=== PATIENT | male | born 1930 | race Caucasian/White ===

== ENCOUNTER 2017-04-21 17:04 | Observation (INO) | payer BC, MEDICARE, OTHER ==
--- NOTE | 2017-04-21 17:19 | EDM.PDOC ---
ED HPI GENERAL MEDICAL PROBLEM - General Chief Complaint: Lower Extremity Injury/Pain Stated Complaint: left knee pain Time Seen by Provider: 04/21/17 17:10 Source of Information: Reports: Patient, EMS History Limitations: Reports: No Limitations - History of Present Illness INITIAL COMMENTS - FREE TEXT/NARRATIVE: Pt was standing up from a stool and turned and his knee "gave out". Causing discomfort. When he tried to walk it caused severe pain. 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 Last surgery 5-6 yrs ago. Pt denies falling or hitting his head. Denies any loc, dizziness, or confusion. Onset: Today, Sudden Onset Date: 04/21/17 Onset Time: 04:00 Duration: Getting Worse Location: Reports: Upper Extremity, Left Quality: Reports: Sharp Improves with: Reports: Immobilization, Rest Worsens with: Reports: Movement Associated Symptoms: Reports: No Other Symptoms. Denies: Confusion, Malaise, Nausea/Vomiting, Seizure, Syncope, Weakness left knee Pain Score (Numeric/FACES): 5 - Related Data Allergies Allergy/AdvReac Type Severity Reaction Status Date / Time No Known Allergies Allergy Verified 04/21/17 17:30 Home Meds: Home Meds Benazepril HCl [Lotensin] 40 mg PO DAILY 04/21/17 [History] RX: Betamethasone Valerate [IJD: Valisone 0.1% Crm] 1 applic TOP DAILY 04/21/17 [History] RX: Felodipine [Felodipine ER] 10 mg pe PO DAILY 04/21/17 [History] RX: Gemfibrozil 600 mg PO DAILY 04/21/17 [History] RX: atorvaSTATin [Lipitor] 20 mg PO DAILY 04/21/17 [History] RX: glipiZIDE [Glucotrol XL] 5 mg PO DAILY 04/21/17 [History] metFORMIN HCl [Metformin HCl] 1,000 mg PO DAILY 04/21/17 [History] Review of Systems - Review of Systems Review Of Systems: See Below Constitutional: Reports: No Symptoms Respiratory: Reports: No Symptoms Cardiovascular: Reports: No Symptoms GI/Abdominal: Reports: No Symptoms Musculoskeletal: Reports: Leg Pain (left knee pain and swelling ), Joint Swelling Skin: Reports: No Symptoms Neurological: Reports: No Symptoms ED EXAM, GENERAL - Physical Exam Exam: See Below Exam Limited By: No Limitations General Appearance: Alert, WD/WN, No Apparent Distress Respiratory/Chest: No Respiratory Distress, Lungs Clear, No Accessory Muscle Use Cardiovascular: Normal Peripheral Pulses, Regular Rate, Rhythm, No JVD, No Murmur, No Rub Extremities: Normal Inspection, Leg Pain, Limited Range of Motion. No: Increased Warmth, Mottled, Pallor, Redness Neurological: Alert, Oriented Psychiatric: Normal Affect, Normal Mood Skin Exam: Warm, Dry, Intact Course - Vital Signs Last Recorded V/S: Last Vital Signs Temp 37.2 C 04/21/17 17:05 Pulse 85 04/21/17 17:05 Resp 16 04/21/17 17:05 BP Pulse Ox 94 L 04/21/17 17:05 - Orders/Labs/Meds Orders: Active Orders 24 hr Category Date Time Status Knee 1V or 2V Lt [CR] Stat Exams 04/21/17 17:12 Taken Departure - Departure Time of Disposition: 17:50 Disposition: Home, Self-Care 01 Condition: Good Clinical Impression: Knee MCL sprain Qualifiers: Encounter type: initial encounter Laterality: left Qualified Code(s): S83.412A - Sprain of medial collateral ligament of left knee, initial encounter - Discharge Information Instructions: Crutch Use, [id number], Pain Medicine Instructions, Easy-to- Read, Knee Sprain, [id number] Referrals: PCP,None [Primary Care Provider] - (Orthopedic specialty. Pt has his specialist in [place]. He will call them sunday ) Forms: ED Department Discharge, ED Summary Discharge Additional Instructions: follow up with Orthopedic provider this week for further evaluation and management of the left knee. Ice/rest and elevate the left knee. Use the crutches for support. Can use Tylenol and ibuprofen for pain relief as needed. - My Orders Last 24 Hours: My Active Orders 04/21/17 17:12 Knee 1V or 2V Lt [CR] Stat - Assessment/Plan Last 24 Hours: My Active Orders 04/21/17 17:12 Knee 1V or 2V Lt [CR] Stat
[2017-04-21] MEDS ORDERED: Acetaminophen 500 MG Tab PO PRN (19:21)
[2017-04-21] MEDS: metFORMIN 500 MG Tab PO SCH (20:43)
[2017-04-21] MEDS: glipiZIDE 5 MG Tab.ER PO SCH (20:44)
[2017-04-21] MEDS: Gemfibrozil 600 MG Tab PO SCH (20:44)
[2017-04-21] MEDS: Ibuprofen 200 MG Tab PO SCH (22:14)
[2017-04-21] MEDS: Acetaminophen/HYDROcodone 325-5 MG Tab PO PRN (22:14)
[2017-04-21] MEDS: diphenhydrAMINE 25 MG Cap PO SCH (22:14)
[2017-04-22] MEDS: Acetaminophen/HYDROcodone 325-5 MG Tab PO PRN ×4 (05:10→19:35)
[2017-04-22] MEDS: Lisinopril 20 MG Tab PO SCH (07:38)
[2017-04-22] MEDS: amLODIPine 10 MG Tab PO SCH (07:39)
[2017-04-22] MEDS: metFORMIN 500 MG Tab PO SCH ×2 (07:39→17:38)
[2017-04-22] MEDS: glipiZIDE 5 MG Tab.ER PO SCH (07:39)
[2017-04-22] MEDS: atorvaSTATin 10 MG Tab PO SCH (07:39)
[2017-04-22] MEDS: Gemfibrozil 600 MG Tab PO SCH ×2 (07:41→17:38)
[2017-04-22] MEDS ORDERED: Pioglitazone 15 MG Tab PO SCH (08:00)
--- NOTE | 2017-04-22 10:49 | PN ---
Progress Note for RAD JI Date: 04/22/2017 Room #: VM.204 SUBJECTIVE: An 86-year-old white male, admitted to observation status from the emergency room last evening. He sustained a left knee injury yesterday at 4 p.m. He was in his home, and when he turned and twisted, his left knee gave out, and he collapsed. He had to call the ambulance to get him up and be brought into the emergency room for assessment. He was seen by the ED provider and felt to have an MCL injury. Initially, thought he could go home but then it was found out that he lives alone, and he was unable to transfer or bear weight. Hence for these reasons, he was placed on observation for the weekend. This morning, he says his knee feels better. He rates the pain about a 5/10. He says the pain medications are helping. His past history includes diabetes, hypertension, and hyperlipidemia. Medications and allergies reviewed on the electronic health record. He lives alone in a trailer in [place]. He goes to [place] in the winter, lives every May. He gets all his doctoring done in [place] and does not have any local provider. OBJECTIVE: GENERAL: He is alert. He is afebrile. His vital signs are stable. Blood pressure is 133/74, pulse of 88 and regular, O2 sats 98% on room air. HEART: Regular rate and rhythm. LUNGS: Clear. ABDOMEN: Benign. EXTREMITIES: No edema. The left knee is swollen. There is no effusion present. There is tenderness of the medial collateral ligament area, especially with stress, some less discomfort on the lateral side. Pain with range of motion. Of note, the patient has had bilateral total knee arthroplasty. That has actually been done twice in the left knee. DIAGNOSTIC DATA: X-rays of the left knee were reviewed. These were read as unremarkable. There is no hardware complications identified. Laboratories: Accu-Chek this morning is 235. ASSESSMENT: 1. Left knee injury. 2. Diabetes mellitus type 2. 3. Hypertension. 4. Hyperlipidemia. PLAN: The patient will continue observation status at this time. I advised that he probably needs to be on self-pay swing bed for rehabilitation. I did put in a physical therapy, consultation for tomorrow, and also social service consultation for tomorrow to discuss insurance issues. The on-call provider for [facility], Dr. Awilda Castro will assume care in the morning, I will contact her and explain the situation to her. Because of his lack of mobility, we will place him on DVT prophylaxis with SQ Lovenox. Check some labs today and monitor his Accu-Cheks. FM: 04/22/2017 09:52:18 MODL: 04/22/2017 10:34:39 /[id number] MTDD
[2017-04-22] MEDS: Enoxaparin 30 MG/0.3 ML Syringe SUBCUT SCH (11:40)
[2017-04-22] MEDS: BETAMETHASONE VALERATE TOP SCH (13:54)
[2017-04-22] MEDS: Aspirin 81 MG Tab.EC PO SCH (15:06)
[2017-04-22] MEDS ORDERED: glipiZIDE 5 MG Tab.ER PO SCH (18:00)
[2017-04-22] MEDS ORDERED: glipiZIDE 5 MG Tab PO SCH (18:00)
[2017-04-22] MEDS: Ibuprofen 200 MG Tab PO SCH (19:35)
[2017-04-22] MEDS: diphenhydrAMINE 25 MG Cap PO SCH (19:36)
[2017-04-22] MEDS ORDERED: Ibuprofen 200 MG Tab PO SCH (20:00)
[2017-04-22] MEDS ORDERED: diphenhydrAMINE 25 MG Cap PO SCH (20:00)
[2017-04-23 05:57] VITALS: BP 128/70
[2017-04-23] MEDS: Gemfibrozil 600 MG Tab PO SCH (06:12)
[2017-04-23] MEDS: Enoxaparin 30 MG/0.3 ML Syringe SUBCUT SCH (07:44)
[2017-04-23] MEDS: Lisinopril 20 MG Tab PO SCH (07:44)
[2017-04-23] MEDS: amLODIPine 10 MG Tab PO SCH (07:45)
[2017-04-23] MEDS: metFORMIN 500 MG Tab PO SCH (07:45)
[2017-04-23] MEDS: atorvaSTATin 10 MG Tab PO SCH (07:45)
[2017-04-23] MEDS: Aspirin 81 MG Tab.EC PO SCH (07:45)
[2017-04-23] MEDS: BETAMETHASONE VALERATE TOP SCH (07:46)
[2017-04-23] MEDS ORDERED: Pioglitazone 15 MG Tab PO SCH (08:00)
[2017-04-23] MEDS ORDERED: Fish Oil/Omega-3 Fatty Acids 1 Gm Cap PO SCH (08:00)
[2017-04-23] MEDS ORDERED: FLAXSEED OIL 1000 MG PO SCH (08:00)
[2017-04-23] MEDS ORDERED: Calcium Carbonate/Vitamin D3 1250 MG-200 Unit Tab PO SCH (08:00)
[2017-04-23] MEDS ORDERED: glipiZIDE 10 MG Tab.ER PO SCH (08:00)
--- NOTE | 2017-04-24 00:07 | DISCH ---
PRIMARY DISCHARGE DIAGNOSES: 1. Left knee injury with remote history of knee replacement. 2. Diabetes type 2, under good control without long-term insulin use. 3. Essential hypertension. 4. Hyperlipidemia. REASON FOR ADMISSION: On the date of admission, this 86-year-old male sort of twisted his knee and had significant pain. X-rays were done which did not show any fracture. The ER provider discussed with [facility] who did not recommend any surgical intervention. The patient was unable to bear weight due to pain; therefore, could not be sent home as he lived alone. He was placed on observation status with a knee immobilizer. He was requiring assistance to use the commode. He was using hydrocodone up to 4 times a day. He was having bowel movements. He denies having any trouble with that in the past. He denies using pain pills in the past. He was seen by PT and social welfare research worker. Recommendations were made to transition over to swing bed for further therapies until he could be up and ambulating to a point where he could return home. PHYSICAL EXAMINATION: Vital Signs: Discharge vitals included temperature of 97.4, pulse 96, blood pressure 128/70, respiratory rate 24, O2 was 94% on room air. General: He is in no acute distress. Heart: Regular rate and rhythm. S1, S2 without murmur. Lungs: Sounds are clear to auscultation bilaterally without crackles or wheezes. Abdomen: Positive bowel sounds. Soft and nontender. Extremities: Warm and dry. He has no edema. He has no calf tenderness. The left knee is examined. He is able to achieve full extension. Flexion is limited. He has some minimal effusion but no redness or warmth. He has tenderness to palpation over the patella and anterior aspect but no significant bruising is noted. Otherwise, mental status, he is alert and orientated x3. LABORATORY DATA: He did have some lab work. Initially, his hemoglobin was 11, white count normal. Kidney function was normal at 1.3. He has been on Lovenox for DVT prophylaxis and his blood sugars were initially quite high at 235, but it was improved down to 117 this morning. DISCHARGE PLANS AND INSTRUCTIONS: The patient is going over to swing bed. We are going to continue Lovenox probably for a total of 1 week. We will continue CBC monitoring. We will continue Accu-Cheks for him twice daily. We will continue to have him work with therapies. I have also ordered OT today. We will continue hydrocodone for pain control. I will order senna S as needed. He also has Motrin available. We will watch his use on that due to being on the Lovenox. Otherwise, Leasing Property Manager is involved in his care and working with his insurance. He is a code level 1. MKA: 04/23/2017 17:20:29 MODL: 04/23/2017 23:58:59 /[id number]
[2017-04-24] MEDS ORDERED: Aspirin 81 MG Tab.EC PO SCH (08:00)
== END 2017-04-23 13:11 | disposition swing bed (61) ==
LOC: VM.ED 17:04 → UNDOADMOB 19:07 → VM.MS 19:07 → UNDODISOB 04-23 13:11
PROVIDERS: ADMIT Nurse Practitioner; ATTEND Family Medicine
DX: S83.412A Sprain of medial collateral ligament of left knee, initial encounter (principal); I10 Essential (primary) hypertension; E11.9 Type 2 diabetes mellitus without complications; E78.5 Hyperlipidemia, unspecified; Z96.652 Presence of left artificial knee joint; X50.1XXA Overexertion from prolonged static or awkward postures, initial encounter; Z79.84 Long term (current) use of oral hypoglycemic drugs
CPT/HCPCS: 36415; 73560; 80048; 82962; 85025; 85027; 97161; 97165; 99285; A9270; G0378; J1650; 99220; 99226

== ENCOUNTER 2017-04-23 13:02 | Inpatient (IN) | payer MEDICARE, OTHER ==
[2017-04-23] MEDS: glipiZIDE 5 MG Tab PO SCH (17:14)
[2017-04-23] MEDS: metFORMIN 500 MG Tab PO SCH (17:14)
[2017-04-23] MEDS: Gemfibrozil 600 MG Tab PO SCH (17:14)
[2017-04-23] MEDS ORDERED: metFORMIN 500 MG Tab PO SCH (18:00)
[2017-04-23] MEDS: Ibuprofen 200 MG Tab PO SCH (20:07)
[2017-04-23] MEDS: diphenhydrAMINE 25 MG Cap PO SCH (20:07)
[2017-04-23] MEDS: Acetaminophen/HYDROcodone 325-5 MG Tab PO PRN (20:07)
[2017-04-24] MEDS: Gemfibrozil 600 MG Tab PO SCH ×2 (06:11→17:15)
[2017-04-24] MEDS: Calcium Carbonate/Vitamin D3 1250 MG-200 Unit Tab PO SCH (07:44)
[2017-04-24] MEDS: Aspirin 81 MG Tab.EC PO SCH (07:44)
[2017-04-24] MEDS: Fish Oil/Omega-3 Fatty Acids 1 Gm Cap PO SCH (07:44)
[2017-04-24] MEDS: metFORMIN 500 MG Tab PO SCH ×2 (07:44→17:15)
[2017-04-24] MEDS: atorvaSTATin 10 MG Tab PO SCH (07:45)
[2017-04-24] MEDS: FLAXSEED OIL 1000 MG PO SCH (07:45)
[2017-04-24] MEDS: PIOGLITAZONE PO SCH (07:45)
[2017-04-24] MEDS: BENAZEPRIL 40 MG PO SCH (07:45)
[2017-04-24] MEDS: BETAMETHASONE VALERATE TOP SCH (07:46)
[2017-04-24] MEDS: FELODIPINE 10 MG PO SCH (07:46)
[2017-04-24] MEDS ORDERED: Pioglitazone 15 MG Tab PO SCH (08:00)
[2017-04-24] MEDS ORDERED: Lisinopril 20 MG Tab PO SCH (08:00)
[2017-04-24] MEDS ORDERED: amLODIPine 10 MG Tab PO SCH (08:00)
[2017-04-24] MEDS ORDERED: atorvaSTATin 10 MG Tab PO SCH (08:00)
[2017-04-24] MEDS: Acetaminophen/HYDROcodone 325-5 MG Tab PO PRN ×2 (10:32→20:34)
[2017-04-24] MEDS: Enoxaparin 40 MG/0.4 ML Syringe SUBCUT SCH (13:13)
[2017-04-24] MEDS: glipiZIDE 5 MG Tab PO SCH (17:15)
[2017-04-24] MEDS: Ibuprofen 200 MG Tab PO SCH (20:34)
[2017-04-24] MEDS: diphenhydrAMINE 25 MG Cap PO SCH (20:35)
[2017-04-25] MEDS: Gemfibrozil 600 MG Tab PO SCH ×2 (06:28→17:32)
[2017-04-25] MEDS: metFORMIN 500 MG Tab PO SCH ×2 (08:12→17:31)
[2017-04-25] MEDS: Calcium Carbonate/Vitamin D3 1250 MG-200 Unit Tab PO SCH (08:12)
[2017-04-25] MEDS: atorvaSTATin 10 MG Tab PO SCH (08:12)
[2017-04-25] MEDS: FELODIPINE 10 MG PO SCH (08:13)
[2017-04-25] MEDS: Aspirin 81 MG Tab.EC PO SCH (08:13)
[2017-04-25] MEDS: BENAZEPRIL 40 MG PO SCH (08:14)
[2017-04-25] MEDS: PIOGLITAZONE PO SCH (08:14)
[2017-04-25] MEDS: FLAXSEED OIL 1000 MG PO SCH (08:15)
[2017-04-25] MEDS: BETAMETHASONE VALERATE TOP SCH (08:16)
[2017-04-25] MEDS: Fish Oil/Omega-3 Fatty Acids 1 Gm Cap PO SCH (08:17)
[2017-04-25] MEDS: Acetaminophen/HYDROcodone 325-5 MG Tab PO PRN (09:37)
[2017-04-25] MEDS: Enoxaparin 40 MG/0.4 ML Syringe SUBCUT SCH (11:40)
[2017-04-25] MEDS: glipiZIDE 5 MG Tab PO SCH (17:31)
[2017-04-25] MEDS: diphenhydrAMINE 25 MG Cap PO SCH (19:57)
[2017-04-25] MEDS: Ibuprofen 200 MG Tab PO SCH (19:57)
[2017-04-26] MEDS: Gemfibrozil 600 MG Tab PO SCH ×2 (06:17→17:25)
[2017-04-26] MEDS: Fish Oil/Omega-3 Fatty Acids 1 Gm Cap PO SCH (08:33)
[2017-04-26] MEDS: Calcium Carbonate/Vitamin D3 1250 MG-200 Unit Tab PO SCH (08:33)
[2017-04-26] MEDS: metFORMIN 500 MG Tab PO SCH ×2 (08:33→17:25)
[2017-04-26] MEDS: PIOGLITAZONE PO SCH (08:34)
[2017-04-26] MEDS: atorvaSTATin 10 MG Tab PO SCH (08:34)
[2017-04-26] MEDS: Aspirin 81 MG Tab.EC PO SCH (08:34)
[2017-04-26] MEDS: BENAZEPRIL 40 MG PO SCH (08:34)
[2017-04-26] MEDS: FELODIPINE 10 MG PO SCH (08:34)
[2017-04-26] MEDS: FLAXSEED OIL 1000 MG PO SCH (08:35)
[2017-04-26] MEDS: BETAMETHASONE VALERATE TOP SCH (08:35)
[2017-04-26] MEDS: Enoxaparin 40 MG/0.4 ML Syringe SUBCUT SCH (12:36)
[2017-04-26] MEDS: Acetaminophen/HYDROcodone 325-5 MG Tab PO PRN (13:02)
[2017-04-26] MEDS: glipiZIDE 5 MG Tab PO SCH (17:25)
[2017-04-26] MEDS: diphenhydrAMINE 25 MG Cap PO SCH (19:48)
[2017-04-26] MEDS: Ibuprofen 200 MG Tab PO SCH (19:48)
[2017-04-27] MEDS: Gemfibrozil 600 MG Tab PO SCH ×2 (06:31→16:55)
[2017-04-27] MEDS: metFORMIN 500 MG Tab PO SCH ×2 (07:28→18:05)
[2017-04-27] MEDS: atorvaSTATin 10 MG Tab PO SCH (07:29)
[2017-04-27] MEDS: Fish Oil/Omega-3 Fatty Acids 1 Gm Cap PO SCH (07:29)
[2017-04-27] MEDS: Calcium Carbonate/Vitamin D3 1250 MG-200 Unit Tab PO SCH (07:29)
[2017-04-27] MEDS: Acetaminophen/HYDROcodone 325-5 MG Tab PO PRN ×2 (07:29→14:39)
[2017-04-27] MEDS: FLAXSEED OIL 1000 MG PO SCH (07:30)
[2017-04-27] MEDS: Aspirin 81 MG Tab.EC PO SCH (07:30)
[2017-04-27] MEDS: FELODIPINE 10 MG PO SCH (07:31)
[2017-04-27] MEDS: BENAZEPRIL 40 MG PO SCH (07:31)
[2017-04-27] MEDS: PIOGLITAZONE PO SCH (07:32)
[2017-04-27] MEDS: BETAMETHASONE VALERATE TOP SCH (08:05)
[2017-04-27] MEDS: Enoxaparin 40 MG/0.4 ML Syringe SUBCUT SCH (11:27)
[2017-04-27] MEDS: DULoxetine 20 MG Cap PO SCH (14:52)
--- NOTE | 2017-04-27 16:02 | PN ---
Progress Note for RAD JI Date: 04/27/2017 Room #: VM.219 SUBJECTIVE: This is an 86-year-old on swing bed after a left knee injury. He says he is making progress everyday. He is working with therapy. He is using 1 to 2 hydrocodone, but we talked about it being addictive. He is willing to try Cymbalta as long as it is not addictive. He also did get some Motrin yesterday. He has been on metformin, glipizide, and Actos, but his blood sugars have been running around 57 and 68 early in the morning. Otherwise, he denies any trouble breathing. OBJECTIVE: Vital Signs: His temperature is 97.9, pulse 86, blood pressure 141/81, respiratory rate 24, O2 of 94% on room air. General: He is in no acute distress. Heart: Regular rate and rhythm with murmur. Lungs: Sounds are clear to auscultation bilaterally without crackles or wheezes. Abdomen: Positive bowel sounds. Soft and nontender. Extremities: Warm and dry. He has no tenderness or swelling in the left leg. Homans sign negative. The left knee with previous knee replacement is noted. There is still an effusion there, but no significant warmth. There is no redness. He is able to achieve nearly full extension. Mental Status: He is alert and orientated x3. ASSESSMENT AND PLAN: 1. Left knee injury with impaired mobility. He is requiring swing bed cares. He is working with PT and OT. 2. Diabetes, well-controlled. We will stop his Actos. 3. Pain related to knee injury. Nursing is also concerned about his mood, although he denies depression. At this point, he is willing to try Cymbalta. 4. Essential hypertension. Continue home medications. Some blood pressures are elevated, but we will continue to monitor. 5. Hyperlipidemia. PLAN: At this point, the patient will continue swing bed cares. Hopefully, he can transition home with family. He said his son from [place] is planning to come, get him maybe next week. He would consider assisted living, but he does have a pet. MKA: 04/27/2017 15:02:13 MODL: 04/27/2017 15:20:28 /[id number]
[2017-04-27] MEDS: glipiZIDE 5 MG Tab PO SCH (18:05)
[2017-04-27] MEDS: Ibuprofen 200 MG Tab PO SCH (20:49)
[2017-04-27] MEDS: diphenhydrAMINE 25 MG Cap PO SCH (20:52)
[2017-04-28] MEDS: Gemfibrozil 600 MG Tab PO SCH ×2 (06:19→16:12)
[2017-04-28] MEDS: Aspirin 81 MG Tab.EC PO SCH (07:10)
[2017-04-28] MEDS: Calcium Carbonate/Vitamin D3 1250 MG-200 Unit Tab PO SCH (07:10)
[2017-04-28] MEDS: DULoxetine 20 MG Cap PO SCH (07:10)
[2017-04-28] MEDS: atorvaSTATin 10 MG Tab PO SCH (07:10)
[2017-04-28] MEDS: metFORMIN 500 MG Tab PO SCH ×2 (07:10→17:49)
[2017-04-28] MEDS: BENAZEPRIL 40 MG PO SCH (07:10)
[2017-04-28] MEDS: FLAXSEED OIL 1000 MG PO SCH (07:10)
[2017-04-28] MEDS: Fish Oil/Omega-3 Fatty Acids 1 Gm Cap PO SCH (07:10)
[2017-04-28] MEDS: FELODIPINE 10 MG PO SCH (07:11)
[2017-04-28] MEDS: BETAMETHASONE VALERATE TOP SCH (07:12)
[2017-04-28] MEDS: Acetaminophen/HYDROcodone 325-5 MG Tab PO PRN ×2 (08:57→20:59)
[2017-04-28] MEDS: Enoxaparin 40 MG/0.4 ML Syringe SUBCUT SCH (10:59)
[2017-04-28] MEDS: glipiZIDE 5 MG Tab PO SCH (17:49)
[2017-04-28] MEDS: Ibuprofen 200 MG Tab PO SCH (20:57)
[2017-04-28] MEDS: diphenhydrAMINE 25 MG Cap PO SCH (21:01)
[2017-04-29] MEDS: Gemfibrozil 600 MG Tab PO SCH ×2 (06:27→16:03)
[2017-04-29] MEDS: Aspirin 81 MG Tab.EC PO SCH (07:24)
[2017-04-29] MEDS: atorvaSTATin 10 MG Tab PO SCH (07:24)
[2017-04-29] MEDS: DULoxetine 20 MG Cap PO SCH (07:24)
[2017-04-29] MEDS: Calcium Carbonate/Vitamin D3 1250 MG-200 Unit Tab PO SCH (07:24)
[2017-04-29] MEDS: metFORMIN 500 MG Tab PO SCH ×2 (07:24→17:08)
[2017-04-29] MEDS: Fish Oil/Omega-3 Fatty Acids 1 Gm Cap PO SCH (07:25)
[2017-04-29] MEDS: FLAXSEED OIL 1000 MG PO SCH (07:25)
[2017-04-29] MEDS: FELODIPINE 10 MG PO SCH (07:26)
[2017-04-29] MEDS: BENAZEPRIL 40 MG PO SCH (07:26)
[2017-04-29] MEDS: BETAMETHASONE VALERATE TOP SCH (07:28)
[2017-04-29] MEDS ORDERED: Enoxaparin 40 MG/0.4 ML Syringe SUBCUT SCH (08:00)
[2017-04-29] MEDS: Acetaminophen/HYDROcodone 325-5 MG Tab PO PRN ×2 (09:52→20:27)
[2017-04-29] MEDS: glipiZIDE 5 MG Tab PO SCH (17:09)
[2017-04-29] MEDS: diphenhydrAMINE 25 MG Cap PO SCH (20:25)
[2017-04-29] MEDS: Ibuprofen 200 MG Tab PO SCH (20:25)
[2017-04-30] MEDS: Gemfibrozil 600 MG Tab PO SCH ×2 (06:17→16:43)
[2017-04-30] MEDS: BENAZEPRIL 40 MG PO SCH (08:22)
[2017-04-30] MEDS: FELODIPINE 10 MG PO SCH (08:23)
[2017-04-30] MEDS: FLAXSEED OIL 1000 MG PO SCH (08:24)
[2017-04-30] MEDS: DULoxetine 20 MG Cap PO SCH (08:25)
[2017-04-30] MEDS: Fish Oil/Omega-3 Fatty Acids 1 Gm Cap PO SCH (08:25)
[2017-04-30] MEDS: Calcium Carbonate/Vitamin D3 1250 MG-200 Unit Tab PO SCH (08:25)
[2017-04-30] MEDS: atorvaSTATin 10 MG Tab PO SCH (08:25)
[2017-04-30] MEDS: Aspirin 81 MG Tab.EC PO SCH (08:25)
[2017-04-30] MEDS: metFORMIN 500 MG Tab PO SCH ×2 (08:26→17:50)
[2017-04-30] MEDS: Acetaminophen/HYDROcodone 325-5 MG Tab PO PRN ×2 (08:33→21:59)
[2017-04-30] MEDS: BETAMETHASONE VALERATE TOP SCH (08:36)
[2017-04-30] MEDS: glipiZIDE 5 MG Tab PO SCH (17:50)
[2017-04-30] MEDS: diphenhydrAMINE 25 MG Cap PO SCH (19:59)
[2017-04-30] MEDS: Ibuprofen 200 MG Tab PO SCH (19:59)
[2017-05-01] MEDS: Gemfibrozil 600 MG Tab PO SCH ×2 (06:18→17:23)
[2017-05-01] MEDS: BENAZEPRIL 40 MG PO SCH (07:31)
[2017-05-01] MEDS: Calcium Carbonate/Vitamin D3 1250 MG-200 Unit Tab PO SCH (07:32)
[2017-05-01] MEDS: metFORMIN 500 MG Tab PO SCH ×2 (07:32→17:24)
[2017-05-01] MEDS: DULoxetine 20 MG Cap PO SCH (07:32)
[2017-05-01] MEDS: Aspirin 81 MG Tab.EC PO SCH (07:33)
[2017-05-01] MEDS: FELODIPINE 10 MG PO SCH (07:33)
[2017-05-01] MEDS: FLAXSEED OIL 1000 MG PO SCH (07:34)
[2017-05-01] MEDS: atorvaSTATin 10 MG Tab PO SCH (07:34)
[2017-05-01] MEDS: Fish Oil/Omega-3 Fatty Acids 1 Gm Cap PO SCH (07:34)
[2017-05-01] MEDS: BETAMETHASONE VALERATE TOP SCH (07:35)
[2017-05-01] MEDS: Acetaminophen/HYDROcodone 325-5 MG Tab PO PRN ×3 (08:31→18:32)
[2017-05-01] MEDS: Ibuprofen 200 MG Tab PO SCH (20:21)
[2017-05-01] MEDS: diphenhydrAMINE 25 MG Cap PO SCH (20:21)
[2017-05-02] MEDS: Gemfibrozil 600 MG Tab PO SCH ×2 (06:57→17:54)
[2017-05-02] MEDS: DULoxetine 20 MG Cap PO SCH (08:15)
[2017-05-02] MEDS: Fish Oil/Omega-3 Fatty Acids 1 Gm Cap PO SCH (08:15)
[2017-05-02] MEDS: Aspirin 81 MG Tab.EC PO SCH (08:15)
[2017-05-02] MEDS: atorvaSTATin 10 MG Tab PO SCH (08:15)
[2017-05-02] MEDS: Acetaminophen/HYDROcodone 325-5 MG Tab PO PRN ×3 (08:15→22:42)
[2017-05-02] MEDS: metFORMIN 500 MG Tab PO SCH ×2 (08:16→17:54)
[2017-05-02] MEDS: Calcium Carbonate/Vitamin D3 1250 MG-200 Unit Tab PO SCH (08:16)
[2017-05-02] MEDS: FLAXSEED OIL 1000 MG PO SCH (08:17)
[2017-05-02] MEDS: BENAZEPRIL 40 MG PO SCH (08:17)
[2017-05-02] MEDS: FELODIPINE 10 MG PO SCH (08:17)
[2017-05-02] MEDS: BETAMETHASONE VALERATE TOP SCH (08:18)
[2017-05-02] MEDS: Ibuprofen 200 MG Tab PO SCH (20:04)
[2017-05-02] MEDS: diphenhydrAMINE 25 MG Cap PO SCH (20:56)
[2017-05-03] MEDS: Gemfibrozil 600 MG Tab PO SCH ×2 (06:09→17:12)
[2017-05-03] MEDS: FELODIPINE 10 MG PO SCH (08:10)
[2017-05-03] MEDS: BENAZEPRIL 40 MG PO SCH (08:10)
[2017-05-03] MEDS: Aspirin 81 MG Tab.EC PO SCH (08:10)
[2017-05-03] MEDS: atorvaSTATin 10 MG Tab PO SCH (08:11)
[2017-05-03] MEDS: metFORMIN 500 MG Tab PO SCH ×2 (08:11→17:12)
[2017-05-03] MEDS: Calcium Carbonate/Vitamin D3 1250 MG-200 Unit Tab PO SCH (08:12)
[2017-05-03] MEDS: Fish Oil/Omega-3 Fatty Acids 1 Gm Cap PO SCH (08:12)
[2017-05-03] MEDS: DULoxetine 20 MG Cap PO SCH (08:12)
[2017-05-03] MEDS: FLAXSEED OIL 1000 MG PO SCH (08:13)
[2017-05-03] MEDS: BETAMETHASONE VALERATE TOP SCH (08:13)
[2017-05-03] MEDS: Acetaminophen/HYDROcodone 325-5 MG Tab PO PRN ×3 (09:15→23:26)
[2017-05-03] MEDS: diphenhydrAMINE 25 MG Cap PO SCH (19:55)
[2017-05-03] MEDS: Ibuprofen 200 MG Tab PO SCH (19:55)
[2017-05-04] MEDS: Gemfibrozil 600 MG Tab PO SCH ×2 (06:12→17:00)
[2017-05-04] MEDS: Calcium Carbonate/Vitamin D3 1250 MG-200 Unit Tab PO SCH (07:38)
[2017-05-04] MEDS: Fish Oil/Omega-3 Fatty Acids 1 Gm Cap PO SCH (07:39)
[2017-05-04] MEDS: metFORMIN 500 MG Tab PO SCH ×2 (07:39→17:00)
[2017-05-04] MEDS: DULoxetine 20 MG Cap PO SCH (07:39)
[2017-05-04] MEDS: Aspirin 81 MG Tab.EC PO SCH (07:40)
[2017-05-04] MEDS: atorvaSTATin 10 MG Tab PO SCH (07:40)
[2017-05-04] MEDS: FLAXSEED OIL 1000 MG PO SCH (08:12)
[2017-05-04] MEDS: BENAZEPRIL 40 MG PO SCH (08:12)
[2017-05-04] MEDS: FELODIPINE 10 MG PO SCH (08:12)
[2017-05-04] MEDS: BETAMETHASONE VALERATE TOP SCH (08:13)
[2017-05-04] MEDS: Acetaminophen/HYDROcodone 325-5 MG Tab PO PRN ×2 (12:30→20:06)
[2017-05-04] MEDS: diphenhydrAMINE 25 MG Cap PO SCH (19:51)
[2017-05-04] MEDS: Ibuprofen 200 MG Tab PO SCH (19:51)
[2017-05-05] MEDS: Acetaminophen/HYDROcodone 325-5 MG Tab PO PRN ×3 (03:01→19:45)
[2017-05-05] MEDS: Gemfibrozil 600 MG Tab PO SCH ×2 (06:21→17:23)
[2017-05-05] MEDS: FLAXSEED OIL 1000 MG PO SCH (07:58)
[2017-05-05] MEDS: Aspirin 81 MG Tab.EC PO SCH (07:59)
[2017-05-05] MEDS: FELODIPINE 10 MG PO SCH (07:59)
[2017-05-05] MEDS: BENAZEPRIL 40 MG PO SCH (07:59)
[2017-05-05] MEDS: metFORMIN 500 MG Tab PO SCH ×2 (08:00→17:23)
[2017-05-05] MEDS: BETAMETHASONE VALERATE TOP SCH (08:00)
[2017-05-05] MEDS: Fish Oil/Omega-3 Fatty Acids 1 Gm Cap PO SCH (08:00)
[2017-05-05] MEDS: atorvaSTATin 10 MG Tab PO SCH (08:00)
[2017-05-05] MEDS: DULoxetine 20 MG Cap PO SCH (08:00)
[2017-05-05] MEDS: Calcium Carbonate/Vitamin D3 1250 MG-200 Unit Tab PO SCH (08:00)
[2017-05-05] MEDS: Ibuprofen 200 MG Tab PO SCH (19:44)
[2017-05-05] MEDS: diphenhydrAMINE 25 MG Cap PO SCH (19:44)
[2017-05-06] MEDS: Gemfibrozil 600 MG Tab PO SCH ×2 (06:13→18:54)
[2017-05-06] MEDS: FLAXSEED OIL 1000 MG PO SCH (07:33)
[2017-05-06] MEDS: FELODIPINE 10 MG PO SCH (07:34)
[2017-05-06] MEDS: BENAZEPRIL 40 MG PO SCH (07:34)
[2017-05-06] MEDS: atorvaSTATin 10 MG Tab PO SCH (07:35)
[2017-05-06] MEDS: Acetaminophen/HYDROcodone 325-5 MG Tab PO PRN ×2 (07:35→20:24)
[2017-05-06] MEDS: DULoxetine 20 MG Cap PO SCH (07:35)
[2017-05-06] MEDS: Calcium Carbonate/Vitamin D3 1250 MG-200 Unit Tab PO SCH (07:35)
[2017-05-06] MEDS: Fish Oil/Omega-3 Fatty Acids 1 Gm Cap PO SCH (07:35)
[2017-05-06] MEDS: Aspirin 81 MG Tab.EC PO SCH (07:35)
[2017-05-06] MEDS: metFORMIN 500 MG Tab PO SCH ×2 (07:35→18:54)
[2017-05-06] MEDS: BETAMETHASONE VALERATE TOP SCH (07:36)
[2017-05-06] MEDS: diphenhydrAMINE 25 MG Cap PO SCH (20:22)
[2017-05-06] MEDS: Ibuprofen 200 MG Tab PO SCH (20:22)
[2017-05-07] MEDS: Gemfibrozil 600 MG Tab PO SCH ×2 (06:29→16:18)
[2017-05-07] MEDS: Aspirin 81 MG Tab.EC PO SCH (07:24)
[2017-05-07] MEDS: DULoxetine 20 MG Cap PO SCH (07:24)
[2017-05-07] MEDS: Acetaminophen 500 MG Tab PO PRN ×2 (07:24→16:18)
[2017-05-07] MEDS: Fish Oil/Omega-3 Fatty Acids 1 Gm Cap PO SCH (07:24)
[2017-05-07] MEDS: Calcium Carbonate/Vitamin D3 1250 MG-200 Unit Tab PO SCH (07:24)
[2017-05-07] MEDS: atorvaSTATin 10 MG Tab PO SCH (07:24)
[2017-05-07] MEDS: metFORMIN 500 MG Tab PO SCH ×2 (07:24→17:14)
[2017-05-07] MEDS: FELODIPINE 10 MG PO SCH (07:27)
[2017-05-07] MEDS: FLAXSEED OIL 1000 MG PO SCH (07:27)
[2017-05-07] MEDS: BENAZEPRIL 40 MG PO SCH (07:27)
[2017-05-07] MEDS: BETAMETHASONE VALERATE TOP SCH (07:29)
--- NOTE | 2017-05-07 09:42 | PN ---
Progress Note for RAD JI Date: 05/07/2017 Room #: VM.219 SUBJECTIVE: This is an 86-year-old on swing bed due to left knee pain. The patient does feel like it is improving. He has been slow to get up and do things for himself, but he feels like he has not gotten any worse. His sodium was unexpectedly low this morning at 129. He denies any previous problems with that. He is not on any medications that would cause that and on admission sodium was normal. He is only using about 2 hydrocodone a day for pain. He is not having any problems with breathing or chest pain. OBJECTIVE: Vital Signs: His temperature is 98, pulse 90, blood pressure 129/59, respiratory rate 18, O2 of 95% on room air. General: He is in no acute distress. Heart: Regular rate and rhythm. S1, S2 with murmur. Lungs: Sounds are clear to auscultation bilaterally without crackles or wheezes. Abdomen: Positive bowel sounds. Soft and nontender. Extremities: Warm and dry. No edema. His left knee is examined. There is some warmth. There is an effusion there. He is able to nearly extend it fully. He does not have any tenderness to palpation. LABORATORY DATA: Lab work all reviewed showed a white count 6.7, hemoglobin 11.5, platelets 457. Sodium 129, potassium 4.6, chloride 96, bicarbonate 28, BUN 23, creatinine 1.2, glucose 87, calcium 8.7. ASSESSMENT AND PLAN: 1. Left knee injury with impaired mobility. He will continue swing bed cares. He will continue working with PT. 2. Diabetes, well controlled. Actos has been discontinued. Glipizide has been decreased. We will continue to monitor. 3. Pain related to the knee injury. He is taking hydrocodone. We have started him on Cymbalta, which would also help his moods. The possibility is, this could have caused some hyponatremia, but it was just recently started within the last 2 weeks, but we will continue to monitor. If sodium continues to be low we will stop it. 4. Essential hypertension, controlled on home medications. 5. Hyperlipidemia. 6. Hyponatremia. I believe this is euvolemic hyponatremia. PLAN: At this point, the patient will continue on swing bed cares. I will check a thyroid level and sodium again tomorrow. If sodium continues to be low, we will discontinue Cymbalta. He will continue to work with therapies. MKA: 05/07/2017 09:04:16 MODL: 05/07/2017 09:34:06 /[id number]
[2017-05-07] MEDS: diphenhydrAMINE 25 MG Cap PO SCH (19:59)
[2017-05-07] MEDS: Ibuprofen 200 MG Tab PO SCH (19:59)
[2017-05-08] MEDS: Gemfibrozil 600 MG Tab PO SCH ×2 (06:14→16:01)
[2017-05-08] MEDS: FELODIPINE 10 MG PO SCH (07:41)
[2017-05-08] MEDS: BENAZEPRIL 40 MG PO SCH (07:41)
[2017-05-08] MEDS: Fish Oil/Omega-3 Fatty Acids 1 Gm Cap PO SCH (07:42)
[2017-05-08] MEDS: FLAXSEED OIL 1000 MG PO SCH (07:42)
[2017-05-08] MEDS: Calcium Carbonate/Vitamin D3 1250 MG-200 Unit Tab PO SCH (07:42)
[2017-05-08] MEDS: metFORMIN 500 MG Tab PO SCH ×2 (07:43→17:35)
[2017-05-08] MEDS: Aspirin 81 MG Tab.EC PO SCH (07:43)
[2017-05-08] MEDS: DULoxetine 20 MG Cap PO SCH (07:43)
[2017-05-08] MEDS: atorvaSTATin 10 MG Tab PO SCH (07:44)
[2017-05-08] MEDS: Acetaminophen 500 MG Tab PO PRN (07:44)
[2017-05-08] MEDS: BETAMETHASONE VALERATE TOP SCH (07:46)
--- NOTE | 2017-05-08 08:28 | PCM.SN ---
- Free Text/Narrative Note: Sodium dropped to 127 today, he is asymptomatic. We will stop Cymbalta and repeat Sunday. If continues to be lower than 129 will proceed with urine sodium and osmolality, AM cortisol, uric acid, lipids, and serum osmolality. TSH was normal. Orthopedic appointment is being arranged. He initially declined however PT is also recommending it and he may need further imaging to evaluate for other injuries.
[2017-05-08] MEDS: Acetaminophen/HYDROcodone 325-5 MG Tab PO PRN (16:01)
[2017-05-08] MEDS: diphenhydrAMINE 25 MG Cap PO SCH (19:56)
[2017-05-08] MEDS: Ibuprofen 200 MG Tab PO SCH (19:56)
[2017-05-09] MEDS: Acetaminophen/HYDROcodone 325-5 MG Tab PO PRN ×5 (02:24→22:12)
[2017-05-09] MEDS: Gemfibrozil 600 MG Tab PO SCH ×2 (06:02→16:48)
[2017-05-09] MEDS: metFORMIN 500 MG Tab PO SCH ×2 (07:51→17:11)
[2017-05-09] MEDS: Aspirin 81 MG Tab.EC PO SCH (07:52)
[2017-05-09] MEDS: Calcium Carbonate/Vitamin D3 1250 MG-200 Unit Tab PO SCH (07:52)
[2017-05-09] MEDS: Fish Oil/Omega-3 Fatty Acids 1 Gm Cap PO SCH (07:52)
[2017-05-09] MEDS: atorvaSTATin 10 MG Tab PO SCH (07:52)
[2017-05-09] MEDS: FELODIPINE 10 MG PO SCH (07:53)
[2017-05-09] MEDS: FLAXSEED OIL 1000 MG PO SCH (07:53)
[2017-05-09] MEDS: BENAZEPRIL 40 MG PO SCH (07:53)
[2017-05-09] MEDS: BETAMETHASONE VALERATE TOP SCH (07:54)
[2017-05-09] MEDS: diphenhydrAMINE 25 MG Cap PO SCH (22:08)
[2017-05-09] MEDS: Ibuprofen 200 MG Tab PO SCH (22:08)
[2017-05-10] MEDS: Gemfibrozil 600 MG Tab PO SCH ×2 (06:07→17:24)
[2017-05-10] MEDS: Fish Oil/Omega-3 Fatty Acids 1 Gm Cap PO SCH (08:27)
[2017-05-10] MEDS: FELODIPINE 10 MG PO SCH (08:27)
[2017-05-10] MEDS: Aspirin 81 MG Tab.EC PO SCH (08:27)
[2017-05-10] MEDS: metFORMIN 500 MG Tab PO SCH ×2 (08:27→17:24)
[2017-05-10] MEDS: Calcium Carbonate/Vitamin D3 1250 MG-200 Unit Tab PO SCH (08:27)
[2017-05-10] MEDS: atorvaSTATin 10 MG Tab PO SCH (08:27)
[2017-05-10] MEDS: FLAXSEED OIL 1000 MG PO SCH (08:28)
[2017-05-10] MEDS: BETAMETHASONE VALERATE TOP SCH (08:28)
[2017-05-10] MEDS: BENAZEPRIL 40 MG PO SCH (08:28)
[2017-05-10] MEDS: Acetaminophen/HYDROcodone 325-5 MG Tab PO PRN ×3 (08:31→18:58)
[2017-05-10] MEDS: Ibuprofen 200 MG Tab PO SCH (21:27)
[2017-05-10] MEDS: diphenhydrAMINE 25 MG Cap PO SCH (21:29)
[2017-05-11] MEDS: Gemfibrozil 600 MG Tab PO SCH ×2 (06:44→17:57)
[2017-05-11] MEDS: metFORMIN 500 MG Tab PO SCH ×2 (07:36→17:58)
[2017-05-11] MEDS: Fish Oil/Omega-3 Fatty Acids 1 Gm Cap PO SCH (07:36)
[2017-05-11] MEDS: Aspirin 81 MG Tab.EC PO SCH (07:37)
[2017-05-11] MEDS: FLAXSEED OIL 1000 MG PO SCH (07:37)
[2017-05-11] MEDS: Calcium Carbonate/Vitamin D3 1250 MG-200 Unit Tab PO SCH (07:37)
[2017-05-11] MEDS: atorvaSTATin 10 MG Tab PO SCH (07:37)
[2017-05-11] MEDS: BENAZEPRIL 40 MG PO SCH (07:38)
[2017-05-11] MEDS: BETAMETHASONE VALERATE TOP SCH (07:38)
[2017-05-11] MEDS: FELODIPINE 10 MG PO SCH (07:38)
[2017-05-11] MEDS: Acetaminophen/HYDROcodone 325-5 MG Tab PO PRN ×2 (08:58→19:43)
[2017-05-11] MEDS ORDERED: Enoxaparin 40 MG/0.4 ML Syringe SUBCUT SCH (12:45)
--- NOTE | 2017-05-11 13:26 | PN ---
Progress Note for RAD JI Date: 05/11/2017 Room #: VM.219 SUBJECTIVE: This is an 86-year-old on swing bed for PT after his left knee injury. The patient did see Orthopedics this week. They feel that there is some loosening of his hardware with his previous replacement and he will need a complex revision surgery. He elects to have this done back in [place], but will not be able to return there until after 06/01/2017. Orthopedics have recommended a special hinged brace. He would need to go to [place] for this. We are working on those arrangements. Otherwise, he is denying any leg pain other than in his knee. He has been using hydrocodone about twice daily for pain. He is having regular bowel movements. He denies constipation. He denies any breathing problems. We did start him on Cymbalta for pain and moods. Unfortunately, his sodium went down. We repeated it today, it is coming back up to 129. We will recheck next week. Otherwise, initially he was on Lovenox, but this was discontinued when he is moving more. He still up and ambulating with a walker and assist. We will get further confirmation on Orthopedics if he has to be completely nonweightbearing. Right now, he is to trying to keep the leg straight. OBJECTIVE: Vital Signs: His temperature 97.6, pulse 95, blood pressure 129/70, respiratory rate 18, O2 of 93% on room air. General: He is in no acute distress. Heart: Regular rate and rhythm. Lungs: Sounds are clear to auscultation bilaterally without crackles or wheezes. Extremities: Warm and dry. No edema. No calf tenderness. The left knee is tender and effusion is noted. Mental Status: He is alert. He is orientated x3. He was walking back from the bathroom with the assist of the nurse and his walker. Blood sugars have been all below 91 in the morning. ASSESSMENT: 1. Left knee injury with impaired mobility related to some loosening of his knee prosthesis. He saw Orthopedics this week and plan will be to return to [place] for knee revision. Arrangements are being made also with his primary care there to see her when he returns. 2. Diabetes, well controlled. He is off Actos. He is on decreased doses of glipizide. We will continue to monitor. 3. Pain related to the knee injury. He will continue hydrocodone. Cymbalta was stopped due to hyponatremia. 4. Hyponatremia, improving. We will check next week. 5. Essential hypertension, controlled. PLAN: At this point, the patient will continue swing bed cares. He is making some progress with PT, but overall his recovery will be limited by the fact that he needs surgery. We are making arrangements for the left knee hinged brace, and also start him on Lovenox injections for another 7 days due to his impaired mobility, and we will do lab work again next . MKA: 05/11/2017 12:41:02 MODL: 05/11/2017 13:15:53 /[id number]
[2017-05-11] MEDS: Enoxaparin 40 MG/0.4 ML Syringe SUBCUT SCH (19:42)
[2017-05-11] MEDS: Ibuprofen 200 MG Tab PO SCH (19:44)
[2017-05-11] MEDS: diphenhydrAMINE 25 MG Cap PO SCH (19:45)
[2017-05-12] MEDS: Gemfibrozil 600 MG Tab PO SCH ×3 (06:14→17:13)
[2017-05-12] MEDS: BENAZEPRIL 40 MG PO SCH (08:14)
[2017-05-12] MEDS: atorvaSTATin 10 MG Tab PO SCH (08:15)
[2017-05-12] MEDS: BETAMETHASONE VALERATE TOP SCH (08:15)
[2017-05-12] MEDS: Calcium Carbonate/Vitamin D3 1250 MG-200 Unit Tab PO SCH (08:15)
[2017-05-12] MEDS: Fish Oil/Omega-3 Fatty Acids 1 Gm Cap PO SCH (08:15)
[2017-05-12] MEDS: FELODIPINE 10 MG PO SCH (08:15)
[2017-05-12] MEDS: Aspirin 81 MG Tab.EC PO SCH (08:16)
[2017-05-12] MEDS: Acetaminophen/HYDROcodone 325-5 MG Tab PO PRN ×3 (08:16→20:59)
[2017-05-12] MEDS: FLAXSEED OIL 1000 MG PO SCH (08:16)
[2017-05-12] MEDS: metFORMIN 500 MG Tab PO SCH ×2 (08:16→17:14)
[2017-05-12] MEDS: Enoxaparin 40 MG/0.4 ML Syringe SUBCUT SCH (19:43)
[2017-05-12] MEDS: diphenhydrAMINE 25 MG Cap PO SCH (19:43)
[2017-05-12] MEDS: Ibuprofen 200 MG Tab PO SCH (19:44)
[2017-05-13] MEDS: Gemfibrozil 600 MG Tab PO SCH ×2 (06:04→17:23)
[2017-05-13] MEDS: BENAZEPRIL 40 MG PO SCH (08:02)
[2017-05-13] MEDS: FELODIPINE 10 MG PO SCH (08:02)
[2017-05-13] MEDS: Fish Oil/Omega-3 Fatty Acids 1 Gm Cap PO SCH (08:03)
[2017-05-13] MEDS: metFORMIN 500 MG Tab PO SCH ×2 (08:03→17:23)
[2017-05-13] MEDS: Acetaminophen/HYDROcodone 325-5 MG Tab PO PRN ×2 (08:03→12:18)
[2017-05-13] MEDS: Calcium Carbonate/Vitamin D3 1250 MG-200 Unit Tab PO SCH (08:04)
[2017-05-13] MEDS: BETAMETHASONE VALERATE TOP SCH (08:04)
[2017-05-13] MEDS: Aspirin 81 MG Tab.EC PO SCH (08:04)
[2017-05-13] MEDS: atorvaSTATin 10 MG Tab PO SCH (08:04)
[2017-05-13] MEDS: FLAXSEED OIL 1000 MG PO SCH (08:05)
[2017-05-13] MEDS: Ibuprofen 200 MG Tab PO SCH (20:33)
[2017-05-13] MEDS: diphenhydrAMINE 25 MG Cap PO SCH (20:35)
[2017-05-13] MEDS: Enoxaparin 40 MG/0.4 ML Syringe SUBCUT SCH (20:36)
[2017-05-14] MEDS: Gemfibrozil 600 MG Tab PO SCH (06:25)
[2017-05-14 06:37] VITALS: BP 129/79
[2017-05-14] MEDS: atorvaSTATin 10 MG Tab PO SCH (08:19)
[2017-05-14] MEDS: Fish Oil/Omega-3 Fatty Acids 1 Gm Cap PO SCH (08:19)
[2017-05-14] MEDS: metFORMIN 500 MG Tab PO SCH (08:19)
[2017-05-14] MEDS: Calcium Carbonate/Vitamin D3 1250 MG-200 Unit Tab PO SCH (08:19)
[2017-05-14] MEDS: Aspirin 81 MG Tab.EC PO SCH (08:19)
[2017-05-14] MEDS: BENAZEPRIL 40 MG PO SCH (08:20)
[2017-05-14] MEDS: Acetaminophen/HYDROcodone 325-5 MG Tab PO PRN (08:20)
[2017-05-14] MEDS: FELODIPINE 10 MG PO SCH (08:21)
[2017-05-14] MEDS: FLAXSEED OIL 1000 MG PO SCH (08:22)
[2017-05-14] MEDS: BETAMETHASONE VALERATE TOP SCH (08:22)
--- NOTE | 2017-05-15 01:58 | DISCH ---
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 SECONDARY DISCHARGE DIAGNOSES: 1. Includes diabetes type 2, well controlled. He is off Actos and on reduced dose of glipizide. 2. Essential hypertension. 3. Hyperlipidemia. 4. Pain related to the knee injury using 2 hydrocodone per day. 5. DVT prophylaxis. He was treated with a course of Lovenox, a 1-week course was also restarted last week after he saw Ortho and weightbearing was again limited. REASON FOR ADMISSION: On the date of admission, this 86-year-old male had his injury at home. He was admitted for observation status and then placed on swing bed. He worked with therapies, but he continued to have an effusion and limited motion and weakness of that left knee. Therefore, Orthopedics appointment was arranged and x-rays were repeated. Dr. Savage recommended a special hinge brace, which arrangements were made for a fitting tomorrow in [place]. Otherwise, he was using another brace, ambulating with assistance in the walker and very minimal weightbearing with keeping the leg straight with ambulation. The patient otherwise had no concerns during his stay. Nursing felt he was more depressed. We did talk about trying Cymbalta for pain and moods. Unfortunately, his sodium which was 135 on admission went down to 129 with repeat the next day, 127. Cymbalta was stopped and it was improving up to 129 on 05/11 with plans to repeat it this week. Blood sugars were actually in the 68, 67, and 77 range in the morning over the last few days and that is why the decision was made to reduce glipizide further. Otherwise, he did continue on his metformin. He was having regular bowel movements up to 2 per day. PHYSICAL EXAMINATION: Vital Signs: On discharge include a temperature 97.7, pulse 89, blood pressure 129/79, respiratory rate 16, and O2 of 90 on room air. General: He is in no acute distress. Heart: Regular rate and rhythm with murmur. Lungs: Sounds are clear to auscultation bilaterally without crackles or wheezes. Abdomen: Positive bowel sounds, soft and nontender. Extremities: Warm and dry. There is no calf tenderness or edema bilaterally. He does have an effusion noted over his left knee, braces in place, full exam not performed today. He also did have his last blood count on the with a white count normal, hemoglobin was 11.5, and platelets 457. TSH during his stay was 2.25, done for hyponatremia. DISCHARGE PLANS AND INSTRUCTIONS: He will follow up with his primary care provider in [place] when he returns. If he stays in [place] longer than a few weeks, he will see Dr. Kong. He will be on Home Health on discharge to help monitor for medication and changes. Otherwise, he will use his walker as discussed and see the enrollment specialist when returning to [place]. We will also get a sodium level this week. Sodium level should be drawn by Home Health on Sunday or . ADDENDUM TO HOME HEALTH: The patient is limited with mobility due to left knee pain and injury. He will require PT to help with ADLs. He will require nursing to teach and help him to use his brace and take his medications appropriately. I will periodically review this plan of care. I saw the patient [id number] on 05/14. He is homebound due to his impaired mobility, requiring the assistance of another person and a walker to leave his home. Per report from Ortho that I just received he should be NWB on his left knee. CINDYA: 05/14/2017 12:43:06 MODL: 05/15/2017 01:45:11 /[id number] IRMA
== END 2017-05-14 11:15 | disposition home health service (06) | DRG 561 ==
LOC: VM.MS 13:11
PROVIDERS: ADMIT Internal Medicine; ATTEND Internal Medicine
DX: M97.12XA Periprosthetic fracture around internal prosthetic left knee joint, initial encounter (principal); T84.053A Periprosthetic osteolysis of internal prosthetic left knee joint, initial encounter; E11.9 Type 2 diabetes mellitus without complications; I10 Essential (primary) hypertension; E78.5 Hyperlipidemia, unspecified; Z79.84 Long term (current) use of oral hypoglycemic drugs; Z79.82 Long term (current) use of aspirin; Z79.899 Other long term (current) drug therapy
CPT/HCPCS: 36415; 80048; 82962; 84295; 84443; 85025; 85027; 97110-GP; 97116-GP; 97164-GP; 97530-GP; 97535-GO; A9270-GY; J1650